=== PATIENT | female | born 1970 | race Caucasian/White ===

== ENCOUNTER 2016-08-07 20:52 | Observation (INO) | payer OTHER ==
[2016-08-07] MEDS ORDERED: ASPIRIN 81 MG CHEW PO STA (21:14)
[2016-08-07] MEDS ORDERED: NITROGLYCERIN OINT 1 INCH/GM PACKET TOPICAL STA (21:14)
--- NOTE | 2016-08-07 21:17 | ED ---
Chest Pain HPI - General Chief Complaint: Chest Pain Stated Complaint: chest pain Time Seen by Provider: 08/07/16 21:00 Source: patient, family Mode of arrival: ambulatory Limitations: no limitations - History of Present Illness Initial Comments: This 46-year-old white female presents with a complaint of some left-sided chest pain that radiates into her her left neck. It is been present intermittently for the last 3 days. It is associated with some shortness of breath and palpitations. She states that the palpitations feel like her heart is skipping a beat at times. She will have this at rest and sometimes with exertion. She does relate a history of similar incidents with previous workup. Her last stress test was well over 5 years ago. She's also had a Holter monitor. Her previous workups were negative. She denies any leg pain or swelling or history of DVT or PE. She denies any known pulmonary or cardiac disease. She does relate a history of liver cirrhosis, stage IV but otherwise denies any other medical conditions. She has been working out regularly for the past 2 months. - Related Data Home Medications Medication Instructions Recorded Confirmed Ursodiol [Ursodiol] 500 mg PO TID 06/17/15 08/07/16 Artificial Tears-Hypromellose 1 drops BOTH EYES DAILY PRN 08/07/16 08/07/16 [Artificial Tear Drops] Calcium Carbonate [Calcium] 600 mg PO DAILY 08/07/16 08/07/16 Cholecalciferol [Vitamin D3] 1,000 unit PO DAILY 08/07/16 08/07/16 Gluc/Link-MSM#1/C/Jair/Margarito/Bor 1 tab PO DAILY 08/07/16 08/07/16 [Glucosamine-Chondroitin Tablet] Vitamin B Complex 1 cap PO DAILY 08/07/16 08/07/16 Allergies Allergy/AdvReac Type Severity Reaction Status Date / Time fentanyl AdvReac Nausea & Verified 08/07/16 21:17 Vomiting Review of Systems ROS Statement: Those systems with pertinent positive or pertinent negative responses have been documented in the HPI. ROS Other: All systems not noted in ROS Statement are negative. Past Medical History Additional Past Medical History / Comment(s): liver disease stage 4 History of Any Multi-Drug Resistant Organisms: None Reported Past Surgical History: Section, Cholecystectomy Past Psychological History: No Psychological Hx Reported Smoking Status: Never smoker Past Alcohol Use History: None Reported Past Drug Use History: None Reported General Exam - General Exam Comments Initial Comments: GENERAL: The patient is well nourished and well hydrated. VITAL SIGNS: Heart rate, blood pressure, respiratory rate reviewed as recorded in nurse's notes. EYES: Pupils are round and reactive. Extraocular movements are intact. No conjunctival / lid redness or swelling. ENT: No external evidence of injury, swelling, or ecchymosis. Airway is patent. Throat is clear. NECK: Nontender. No swelling or evidence of injury. No subcutaneous emphysema. Trachea is midline. No thyroid mass. HEART: Regular rate and rhythm. Good peripheral pulses. LUNGS/CHEST: Breath sounds clear and equal bilaterally. No rales, rhonchi, or wheezes. No ecchymosis, subcutaneous emphysema, or tenderness. ABDOMEN: Abdomen soft without tenderness. No palpable masses or organomegaly. No peritoneal signs. No abdominal wall swelling or ecchymosis. EXTREMITIES: No extremity tenderness. Normal muscle tone and function. No thoracolumbar tenderness. NEUROLOGIC: Sensation is grossly intact. Cranial nerve exam reveals face is symmetrical, tongue is midline, speech is clear. SKIN: No abrasions or ecchymosis is noted. No induration or masses noted. PSYCHIATRIC: Alert and oriented. Appropriate behavior and judgment. 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 All diagnostics were reviewed. The EKG shows a normal sinus rhythm at a rate of 60. No acute ST-T wave changes are identified. The MS interval is 158, QRS duration is 76, and QTC intervals 404. The chest x-ray did not show any acute processes. The laboratory overall is fairly unremarkable. She received aspirin as well as Nitropaste. She is in no distress on recheck. It is felt as though she would benefit from admission to the hospital for further cardiac workup and to rule out acute coronary syndrome. Case will be discussed with medicine in the near future. Disposition Clinical Impression: Chest pain, Dyspnea, Unstable angina Disposition: ADMITTED IP TO THIS [facility] Condition: Fair Time of Disposition: 22:44 Decision Date: 08/07/16 Decision Time: 22:44
[2016-08-07 21:31] LABS: Basophils % (A) 1 %; CH 31.4; CHCM 32.8; Eosinophils # (A) 0.1 k/uL (0-0.7); Eosinophils % (A) 2 %; HCT 46.1 % (34.0-46.0); HDW 2.21; HGB 14.9 gm/dL (11.4-16.0); Luc # (Auto) 0.13; Luc % (Auto) 3; Lymphocytes # (A) 1.7 k/uL (1.0-4.8); Lymphocytes % (A) 37 %; MCH 31.2 pg (25.0-35.0); MCHC 32.4 g/dL (31.0-37.0); MCV 96.3 fL (80.0-100.0); Mean Platelet Volume 7.6; Monocytes # (A) 0.3 k/uL (0-1.0); Monocytes % (A) 6 %; Neutrophils # (A) 2.4 k/uL (1.3-7.7); Neutrophils % (A) 52 %; RBC 4.79 m/uL (3.80-5.40); WBC 4.5 k/uL (3.8-10.6); WBC (Perox) 4.72
[2016-08-07 21:35] LABS: ALT 45 U/L (9-52); AST 45 U/L (14-36); Alkaline Phosphatase 150 U/L (38-126); Anion Gap 8 mmol/L; Blood Urea Nitrogen 15 mg/dL (7-17); Calcium 10.4 mg/dL (8.4-10.2); Carbon Dioxide 29 mmol/L (22-30); Chloride 103 mmol/L (98-107); Glucose 92 mg/dL (74-99); Non-African American GFR(MDRD) >60 (>60 ml/min/1.73 sqM); Sodium 140 mmol/L (137-145); Total Bilirubin 0.7 mg/dL (0.2-1.3); Total Protein 8.3 g/dL (6.3-8.2)
[2016-08-07 21:43] LABS: INR 1.1 (<1.1); Partial Thromboplastin Time 23.4 sec (22.0-30.0); Prothrombin Time 10.7 sec (9.0-12.0)
[2016-08-07 21:46] LABS: Creatine Kinase 45 U/L (30-135)
[2016-08-07 21:59] LABS: Creatine Kinase MB 0.5 ng/mL (0.0-2.4); Troponin I <0.012 ng/mL (0.000-0.034)
--- NOTE | 2016-08-07 22:04 | XR ---
EXAMINATION TYPE: XR chest 2V DATE OF EXAM: 08/07/2016 9:25 PM COMPARISON: NONE HISTORY: Pain TECHNIQUE: Frontal and lateral views of the chest are obtained. FINDINGS: There is no focal air space opacity, pleural effusion, or pneumothorax seen. The cardiac silhouette size is within normal limits. The osseous structures are intact. IMPRESSION: No acute cardiopulmonary process.
[2016-08-07] MEDS ORDERED: HEPARIN SODIUM,PORCINE 5,000 UNIT/ML 1 ML VIAL IV ONE (22:45)
[2016-08-07] MEDS ORDERED: NITROGLYCERIN SL TABS 0.4 MG TAB SUBLINGUAL PRN (22:45)
[2016-08-07] MEDS ORDERED: HEPARIN SODIUM,PORCINE 5,000 UNIT/ML 1 ML VIAL IV PRN (22:45)
[2016-08-07] MEDS: HEPARIN SODIUM,PORCINE/D5W PMX 25,000 UNIT in DEXTROSE/WATER 1 500ML.BAG IV SCH (23:15)
[2016-08-07] MEDS ORDERED: URSODIOL 500 MG PO SCH (23:45)
[2016-08-08] MEDS: NITROGLYCERIN OINT 1 INCH/GM PACKET TOPICAL SCH ×4 (00:21→20:36)
[2016-08-08] MEDS ORDERED: URSODIOL 300 MG CAP PO ONE (01:00)
[2016-08-08 06:22] LABS: Creatine Kinase 33 U/L (30-135)
[2016-08-08 06:34] LABS: Cholesterol 145 mg/dL (<200); HDL Cholesterol 93 mg/dL (40-60); Triglycerides 68 mg/dL (<150)
[2016-08-08 06:36] LABS: Creatine Kinase MB 0.4 ng/mL (0.0-2.4); Troponin I <0.012 ng/mL (0.000-0.034)
[2016-08-08] MEDS ORDERED: ARTIFICIAL TEARS-HYPROMELLOSE DROPS 15 ML BTL BOTH EYES PRN (10:25)
[2016-08-08] MEDS ORDERED: NON-FORMULARY DRUG (Gluc/Chon-Msm#1/C/Mang/Bos/Bor [Glucosamine-Chondroitin Tablet] 1 TAB) PO SCH (10:30)
[2016-08-08] MEDS ORDERED: CHOLECALCIFEROL 1,000 UNIT TAB PO SCH (12:00)
[2016-08-08] MEDS ORDERED: B COMPLEX-VIT C-VIT E-ZINC 1 EACH TAB PO SCH (12:00)
[2016-08-08] MEDS ORDERED: HYDROmorphone 1 MG/ML 1 ML SYRINGE IVP STA (12:06)
--- NOTE | 2016-08-08 12:11 | ECHOF ---
Referral Reason:cp and sob MEASUREMENTS -------- HEIGHT: 172.7 cm WEIGHT: 83.9 kg BP: 111/72 IVSd: 1.2 cm (0.6 - 1.1) LVIDd: 4.4 cm (3.9 - 5.3) LVPWd: 1.1 cm (0.6 - 1.1) IVSs: 1.5 cm LVIDs: 3.0 cm LVPWs: 1.3 cm LAESV Index (A-L): 16.69 ml/m Ao Diam: 3.0 cm (2.0 - 3.7) AV Cusp: 1.7 cm (1.5 - 2.6) LA Diam: 2.6 cm (2.7 - 3.8) MV EXCURSION: 22.169 mm (> 18.000) MV EF SLOPE: 113 mm/s (70 - 150) EPSS: 0.9 cm MV E Kristian: 0.97 m/s MV DecT: 236 ms MV A Kristian: 0.70 m/s MV E/A Ratio: 1.38 RAP: 5.00 mmHg RVSP: 10.99 mmHg FINDINGS -------- Sinus rhythm. This was a technically adequate study. There is borderline concentric left ventricular hypertrophy. Overall left ventricular systolic function is normal with, an EF between 60 - 65 %. The right ventricle is normal in size. Normal LA size by volume 22+/-6 ml/m2. The right atrium is normal in size. Aortic valve is trileaflet and is mildly thickened. There is trace mitral regurgitation. Trace tricuspid regurgitation present. There is no evidence of pulmonary hypertension. The right ventricular systolic pressure, as measured by Doppler, is 10.99mmHg. The pulmonic valve was not well visualized. The aortic root size is normal. There is no pericardial effusion. CONCLUSIONS -------- 1. Sinus rhythm. 2. There is borderline concentric left ventricular hypertrophy. 3. Overall left ventricular systolic function is normal with, an EF between 60 - 65 %. 4. Aortic valve is trileaflet and is mildly thickened. 5. There is trace mitral regurgitation. 6. Trace tricuspid regurgitation present. 7. The right ventricular systolic pressure, as measured by Doppler, is 10.99mmHg. 8. The aortic root size is normal. 9. There is no pericardial effusion. CODING SUPPORT SPECIALIST: Meryl Weathers RDCS
[2016-08-08 19:40] VITALS: RESP 16
[2016-08-08] MEDS: ASPIRIN 325 MG TAB PO SCH (20:35)
[2016-08-08] MEDS ORDERED: URSODIOL 300 MG CAP PO STA (20:55)
--- NOTE | 2016-08-08 21:55 | PN ---
DATE OF SERVICE: 08/08/2016 CHIEF COMPLAINT: Chest pain. HISTORY OF PRESENT ILLNESS: This is the first admission for this 46-year-old A0 white female yousif. She has apparently a history of liver disease and has had it for years. It is not related to alcohol. She states that it is stage IV. She sees a physician in [place]. She is not a candidate for a liver transplant. She noticed some shortness of breath and palpitations and came to the emergency room. She really did not have discomfort. She had no fever, chills, cough, hemoptysis, sputum production, palpitations, orthopnea, PND, etc. She had no fever or chills. REVIEW OF SYSTEMS: Otherwise unremarkable. She has had no urinary complaints, diabetes, etc. Past medical history, family history, and personal and social histories reveal that she is on Ursodiol for her liver disease and other [id number] vitamins. ALLERGIES: FENTANYL. She has had 2 C-sections, cholecystectomy. She has a family history of heart disease on her father's side. She does not smoke. PHYSICAL EXAMINATION: Blood pressure is 139/74 with a pulse of 85 and respirations of 18. In general she appears to be well developed, well nourished, in no acute distress. Skin color is normal and skin is warm and dry. There is no jaundice. Lymph nodes are not enlarged. Head, ears, eyes, nose, mouth and throat were normal. There is no scleral icterus. Chest is clear to auscultation. Cardiac exam demonstrated normal sinus rhythm with no murmurs or extra sounds. ABDOMEN: Soft, nontender, without visceromegaly or masses. Bowel sounds are present. EXTREMITIES: Normal. Neurologically she is intact. IMPRESSION: 1. Chest pain. 2. Palpitations. 3. Shortness of breath. 4. Stage (IV) cirrhosis? PLAN: 1. Bed rest. 2. IV fluids. 3. Serial EKGs and enzymes. Obtain records from [place] to see exactly what her liver disease is.
--- NOTE | 2016-08-08 21:57 | PN ---
DATE OF SERVICE: 08/08/2016 CHIEF COMPLAINT: Chest pain. HISTORY OF PRESENT ILLNESS: This lady is stable this morning and comfortable. She has not had any further pain. Further enzymes are pending. PHYSICAL EXAM: CHEST: Clear. CARDIAC: Normal. ABDOMEN: Soft, nontender. IMPRESSION: 1. Chest pain, etiology unknown. 2. Cirrhosis? PLAN: 1. Continue to monitor cardiac enzymes. 2. Increase activity. 3. Try to obtain records regarding her liver disease.
[2016-08-08] MEDS: CALCIUM CARBONATE 500 MG CHEWABLE PO SCH (22:01)
[2016-08-09] MEDS: NITROGLYCERIN OINT 1 INCH/GM PACKET TOPICAL SCH ×2 (06:03→06:07)
[2016-08-09] MEDS ORDERED: URSODIOL 300 MG CAP PO SCH (07:30)
[2016-08-09 07:56] VITALS: BP 87/51; PULSE 56; TEMP 97.8
[2016-08-09] MEDS: HEPARIN SODIUM,PORCINE/D5W PMX 25,000 UNIT in DEXTROSE/WATER 1 500ML.BAG IV SCH (08:56)
[2016-08-09] MEDS: ASPIRIN 325 MG TAB PO SCH (08:57)
[2016-08-09] MEDS: CALCIUM CARBONATE 500 MG CHEWABLE PO SCH (08:57)
--- NOTE | 2016-08-09 09:12 | P.CRDCN ---
History of Present Illness Consult date: 08/09/16 Chief complaint: Heart racing and fluttering History of present illness: This is a pleasant 46-year-old female patient with a past medical history significant for liver cirrhosis presented to the hospital complaining of heart racing and fluttering episodes. The patient describes intermittent episodes of heart racing and fluttering associated with dizziness and lightheadedness without any syncope. Beside that she describes intermittent episodes of very mild atypical chest discomfort. She is not aware of any prior history of coronary artery disease or cardiac arrhythmia or congestive heart failure. The patient was ruled out for acute coronary event. The cardiac enzymes came in to be unremarkable. The EKG showed sinus rhythm without any significant changes. She underwent an echocardiogram which showed normal LV function without any significant valvular abnormalities. She has been running bradycardic while she is here but she exercised and the heart rate did not drop below 50 beats per minutes. I recommended that the patient can be discharged home. I will follow-up with the patient as an outpatient she is to have a stress test and event monitor. Past Medical History Additional Past Medical History / Comment(s): liver disease stage 4 History of Any Multi-Drug Resistant Organisms: None Reported Past Surgical History: Section, Cholecystectomy Past Anesthesia/Blood Transfusion Reactions: No Reported Reaction Past Psychological History: No Psychological Hx Reported Smoking Status: Never smoker Past Alcohol Use History: None Reported Past Drug Use History: None Reported - Past Family History Father Family Medical History: Cancer Additional Family Medical History / Comment(s): prostate cancer Mother Family Medical History: No Reported History Brother(s) Additional Family Medical History / Comment(s): fuchs disease Sister(s) Additional Family Medical History / Comment(s): un explained bleeding issue Son(s) Family Medical History: No Reported History Daughter(s) History Unknown: Yes Medications and Allergies Home Medications Medication Instructions Recorded Confirmed Type Ursodiol [Ursodiol] 500 mg PO TID 06/17/15 08/07/16 History Artificial Tears-Hypromellose 1 drops BOTH EYES DAILY PRN 08/07/16 08/07/16 History [Artificial Tear Drops] Calcium Carbonate [Calcium] 600 mg PO DAILY 08/07/16 08/07/16 History Cholecalciferol [Vitamin D3] 1,000 unit PO DAILY 08/07/16 08/07/16 History Gluc/Link-MSM#1/C/Jair/Margarito/Bor 1 tab PO DAILY 08/07/16 08/07/16 History [Glucosamine-Chondroitin Tablet] Vitamin B Complex 1 cap PO DAILY 08/07/16 08/07/16 History Allergies Allergy/AdvReac Type Severity Reaction Status Date / Time fentanyl AdvReac Nausea & Verified 08/07/16 23:39 Vomiting Physical Exam Vitals: Vital Signs Temp Pulse Resp BP Pulse Ox 08/09/16 07:56 97.8 F 56 L 16 87/51 99 08/09/16 04:00 97.9 F 53 L 16 102/68 99 08/09/16 00:00 98.2 F 55 L 16 102/61 97 08/08/16 20:00 16 08/08/16 19:39 98.7 F 62 16 109/66 97 08/08/16 16:00 97.9 F 62 14 101/66 95 08/08/16 12:00 98.1 F 62 16 98/69 97 Intake and Output 08/08/16 08/09/16 08/09/16 22:59 06:59 14:59 Intake Total 240 Balance 240 Intake: Oral 240 Other: Voiding Method Toilet Toilet # Voids 1 - Constitutional General appearance: no acute distress - Respiratory Respiratory: bilateral: CTA - Cardiovascular Rhythm: regular Heart sounds: normal: S1, S2 Results 08/07/16 21:00 08/07/16 21:00 Cardiac Enzymes 08/08/16 Range/Units 14:34 Troponin I <0.012 (0.000-0.034) ng/mL Current Medications Generic Name Dose Route Start Last Admin Trade Name Freq PRN Reason Stop Dose Admin Artificial Tears 1 drops 08/08/16 10:25 Artificial Tear Drops BOTH EYES DAILY PRN Dry Eye(s) Aspirin 325 mg 08/08/16 09:00 08/09/16 08:57 Aspirin PO 325 mg DAILY OCTAVIA Administration Calcium Carbonate/Glycine 500 mg 08/08/16 11:00 08/09/16 08:57 Tums PO 500 mg DAILY OCTAVIA Administration Cholecalciferol 1,000 unit 08/08/16 12:00 08/08/16 22:01 Vitamin D3 PO 1,000 unit DAILY@1200 OCTAVIA Administration Nitroglycerin 1 inch 08/08/16 01:00 08/09/16 06:07 Nitro-Bid Oint TOPICAL Not Given Q6HR [facility] Nitroglycerin 0.4 mg 08/07/16 22:45 Nitrostat SUBLINGUAL Q5M PRN Chest Pain Ursodiol 600 mg 08/09/16 07:30 08/09/16 08:57 Actigall PO 600 mg TID-W/MEALS OCTAVIA Administration Vitamin B Complex/Vit C/Vit E/Zinc 1 each 08/08/16 12:00 08/08/16 23:09 Z-Bec PO 1 each DAILY@1200 OCTAVIA Administration Intake and Output 08/08/16 08/09/16 08/09/16 22:59 06:59 14:59 Intake Total 240 Balance 240 Intake: Oral 240 Other: Voiding Method Toilet Toilet # Voids 1 Assessment and Plan Plan: Assessment Atypical chest discomfort Intermittent episodes of heart racing and fluttering The first cirrhosis Plan The patient was ruled out for acute coronary event She underwent an echo showed normal LV function She can be discharged home.
--- NOTE | 2016-08-09 09:53 | P.DS ---
Providers Date of admission: 08/07/16 22:45 Expected date of discharge: 08/09/16 Attending physician: Alen León Consults: 08/09/16 08:46 Consult Physician Routine Consulting Provider: Chris Gomes Consult Reason/Comments: chest pain Do you want consulting provider notified?: Yes Primary care physician: Stated None Hospital Course: 46-year-old female presented on the day of admission to the emergency room with a chief complaint of feeling that the heart was racing and fluttering associated with dizziness and lightheadedness with no evidence of a syncopal episode. Patient stated the episodes were intermittent. Additionally patient was expressing feeling atypical chest discomfort. Cardiac enzymes 3 sets were negative. The 12-lead EKG showed sinus with no acute changes. Patient underwent echocardiogram it showed normal LV function without any significant valvular abnormality.. Cardiology consultation was requested. Cardiology indicated that there was no further cardiac workup at this time the patient to be discharged and they would follow the patient up in an outpatient setting and have the patient wear an event monitor and do a stress test at that time. At the time of discharge on August 07 the AST was 45 ALT 45 alk phos 150. admission the patient did give a history of being told she had cirrhosis of the liver and stated that she sees a specialist in [place]. Did attempt to receive medical records from [place] were not able to obtain Impression discharge diagnosis Present on admission atypical chest pain negative cardiac enzymes 3 sets Echocardiogram left ventricular systolic function normal EF between 60 and 65% no valvular heart disease Mildly elevated AST and ALT History of liver disease states follows up with a physician in [place] History per patient report stage IV cirrhosis of the liver Present on admission heart palpitation twelve-lead EKG sinus rhythm The above dictated assessment and findings were discussed with Dr. León Impression and the plan of care have been dictated as directed. Ina Campbell nurse practitioner acting as a scribe for Dr. León Patient Condition at Discharge: Fair Plan - Discharge Summary Discharge Medication List Ursodiol 500 mg PO TID 06/17/15 [History] Artificial Tears-Hypromellose [Artificial Tear Drops] 1 drops BOTH EYES DAILY PRN 08/07/16 [History] Calcium Carbonate [Calcium] 600 mg PO DAILY 08/07/16 [History] Cholecalciferol [Vitamin D3] 1,000 unit PO DAILY 08/07/16 [History] Gluc/Link-MSM#1/C/Jair/Margarito/Bor [Glucosamine-Chondroitin Tablet] 1 tab PO DAILY 08/07/16 [History] Vitamin B Complex 1 cap PO DAILY 08/07/16 [History] Ursodiol [Actigall] 600 mg PO TID-W/MEALS cap 08/09/16 [Rx] Follow up Appointment(s)/Referral(s): None,Stated [Primary Care Provider] - 1-2 days Chris Gomes MD [STAFF PHYSICIAN] - 1 Week Alen León MD [STAFF PHYSICIAN] - 08/11/16 Discharge Disposition: HOME SELF-CARE
--- NOTE | 2016-08-09 16:19 | PN ---
DATE OF SERVICE: 08/09/2016 CHIEF COMPLAINT: Chest pain. HISTORY OF PRESENT ILLNESS: This lady is doing fairly well. She still has some discomfort. Studies have all been negative so far. We have not been able to obtain records from [place]. PHYSICAL EXAMINATION: Color is good. Chest is clear. Cardiac exam is normal. Abdomen is soft, nontender. IMPRESSION: 1. Chest pain, etiology unknown. 2. End-stage liver disease. PLAN: 1. Await studies from [place]. 2. She could probably go home otherwise, and this will be arranged by the nurse practitioner if she goes today.
--- NOTE | 2016-08-10 07:19 | DS ---
DATE OF ADMISSION: 08/07/2016 DATE OF DISCHARGE: 08/09/2016 CHIEF COMPLAINT: Chest pain. HISTORY OF PRESENT ILLNESS: This lady was admitted with chest pain but it sounded more likely it was GI. The records were sought from [place], but not received. Heart disease was ruled out and it was felt that she could be discharged on the third. She will follow up with her own physicians in [place]. FINAL DIAGNOSES: 1. Atypical chest pain. 2. Stage IV liver disease. OPERATIONS: None. CONSULTATIONS: None. She is improved.
== END 2016-08-09 11:22 | disposition home or self-care (01) ==
LOC: EC 20:52 → 3OBS 22:45
PROVIDERS: ADMIT Family Medicine; ATTEND Family Medicine
DX: R07.89 Other chest pain (principal); N18.6 End stage renal disease; K74.60 Unspecified cirrhosis of liver; R00.2 Palpitations; R06.02 Shortness of breath; R00.0 Tachycardia, unspecified; R42 Dizziness and giddiness; Z88.5 Allergy status to narcotic agent; Z82.49 Family history of ischemic heart disease and other diseases of the circulatory system; Z79.899 Other long term (current) drug therapy
CPT/HCPCS: 96375; 96374; 99285; 36415; 93005; 93306; 85379; 83880; 80061; 80053; 82550 ×2; 82553 ×2; 83735; 84484 ×2; 85025; 85610; 85730 ×2; 71020; G0378 ×3; J1644 ×2; J1170

== ENCOUNTER → 2017-12-13 | Outpatient (CLI) | payer BC ==
--- NOTE | 2017-12-14 14:16 | MM ---
Reason for exam: screening (asymptomatic). Last mammogram was performed 1 year and 11 months ago. History: Benign right mammotome panel of the right breast, July 01, 2013. Physical Findings: A clinical breast exam by your physician is recommended on an annual basis and results should be correlated with mammographic findings. MG 3D Screening Mammo W/Cad Bilateral CC and MLO view(s) were taken. Prior study comparison: January 21, 2016, bilateral MG 3d screening mammo w/cad. January 22, 2014, right breast MG diagnostic mammo RT w CAD. The breast tissue is heterogeneously dense. This may lower the sensitivity of mammography. Previous mammotome biopsy in the right breast. There is no discrete abnormality. ASSESSMENT: Benign, BI-RAD 2 RECOMMENDATION: Routine screening mammogram of both breasts in 1 year.
== END | disposition home or self-care (01) ==
LOC: RADMAMWWP 09:10
PROVIDERS: ATTEND Obstetrics & Gynecology
DX: Z12.31 Encounter for screening mammogram for malignant neoplasm of breast (principal)
CPT/HCPCS: 77063; 77067

== ENCOUNTER → 2019-04-10 | Outpatient (CLI) | payer BC ==
--- NOTE | 2019-04-14 09:29 | MM ---
Reason for exam: screening (asymptomatic). Last mammogram was performed 1 year and 4 months ago. History: Benign right mammotome panel of the right breast, July 01, 2013. Physical Findings: A clinical breast exam by your physician is recommended on an annual basis and results should be correlated with mammographic findings. MG 3D Screening Mammo W/Cad Bilateral CC and MLO view(s) were taken. Prior study comparison: December 13, 2017, bilateral MG 3d screening mammo w/cad. January 21, 2016, bilateral MG 3d screening mammo w/cad. The breast tissue is heterogeneously dense. This may lower the sensitivity of mammography. Previous mammotome biopsy in the right breast. Global asymmetry upper outer quadrant left breast is unchanged. No significant changes when compared with prior studies. ASSESSMENT: Benign, BI-RAD 2 RECOMMENDATION: Routine screening mammogram of both breasts in 1 year.
== END | disposition home or self-care (01) ==
LOC: RADMAMWWP 10:53
PROVIDERS: ATTEND Obstetrics & Gynecology
DX: Z12.31 Encounter for screening mammogram for malignant neoplasm of breast (principal)
CPT/HCPCS: 77063; 77067

== ENCOUNTER 2020-04-26 13:22 | Inpatient (IN) | payer BC ==
--- NOTE | 2020-04-26 13:59 | ED ---
General Adult HPI - General Chief complaint: Chest Pain Stated complaint: Chest pain Time Seen by Provider: 04/26/20 13:25 Source: patient, EMS, RN notes reviewed, old records reviewed Mode of arrival: EMS Limitations: no limitations - History of Present Illness Initial comments: This a 50-year-old female with a past medical history significant for SVT. Patient states she's had SVT in the past. But this morning when she was exercising went to 200 beats a minute. And it lasted for about an hour. Patient got to the emergency department she was still expressing some chest heaviness when they did a troponin that was normal and the second troponin was mildly elevated. Patient denies any shortness of breath earlier when the heart rate was racing she felt a little short of breath and lightheaded. - Related Data Home Medications Medication Instructions Recorded Confirmed ursodioL [Ursodiol] 500 mg PO TID 06/17/15 04/26/20 Calcium Carbonate [Calcium] 600 mg PO DAILY 08/07/16 04/26/20 Cholecalciferol [Vitamin D3 (25 1,000 unit PO DAILY 08/07/16 04/26/20 Mcg = 1000 Iu)] Vitamin B Complex 1 cap PO DAILY 08/07/16 04/26/20 Ascorbic Acid [Vitamin C] 1,000 mg PO DAILY 04/26/20 04/26/20 Allergies Allergy/AdvReac Type Severity Reaction Status Date / Time fentanyl AdvReac Nausea & Verified 04/26/20 13:52 Vomiting Review of Systems ROS Statement: Those systems with pertinent positive or pertinent negative responses have been documented in the HPI. ROS Other: All systems not noted in ROS Statement are negative. Past Medical History Additional Past Medical History / Comment(s): liver disease stage 4, SVT History of Any Multi-Drug Resistant Organisms: None Reported Past Surgical History: Section, Cholecystectomy Past Anesthesia/Blood Transfusion Reactions: No Reported Reaction Past Psychological History: No Psychological Hx Reported Smoking Status: Never smoker Past Alcohol Use History: None Reported Past Drug Use History: None Reported - Past Family History Father Family Medical History: Cancer Additional Family Medical History / Comment(s): prostate cancer Mother Family Medical History: No Reported History Brother(s) Additional Family Medical History / Comment(s): fuchs disease Sister(s) Additional Family Medical History / Comment(s): un explained bleeding issue Son(s) Family Medical History: No Reported History Daughter(s) History Unknown: Yes General Exam - General Exam Comments Initial Comments: GENERAL: Patient is well-developed and well-nourished. Patient is nontoxic and well- hydrated and is in mild distress. ENT: Neck is soft and supple. No significant lymphadenopathy is noted. Oropharynx is clear. Moist mucous membranes. Neck has full range of motion without eliciting any pain. EYES: The sclera were anicteric and conjunctiva were pink and moist. Extraocular movements were intact and pupils were equal round and reactive to light. Eyelids were unremarkable. PULMONARY: Unlabored respirations. Good breath sounds bilaterally. No audible rales rhonchi or wheezing was noted. CARDIOVASCULAR: There is a regular rate and rhythm without any murmurs gallops or rubs. ABDOMEN: Soft and nontender with normal bowel sounds. SKIN: Skin is clear with no lesions or rashes and otherwise unremarkable. NEUROLOGIC: Patient is alert and oriented x3. Cranial nerves II through XII are grossly intact. Motor and sensory are also intact. Normal speech, volume and content. Symmetrical smile. MUSCULOSKELETAL: Normal extremities with adequate strength and full range of motion. No lower extremity swelling or edema. No calf tenderness. LYMPHATICS: No significant lymphadenopathy is noted PSYCHIATRIC: Normal psychiatric evaluation. Limitations: no limitations Course Vital Signs 04/26/20 13:26 Temperature 98.2 F Pulse Rate 64 Respiratory 18 Rate Blood Pressure 116/77 O2 Sat by Pulse 99 Oximetry Medical Decision Making - Medical Decision Making EKG shows normal sinus rhythm at 60 bpm OR interval is 144 QRS is 74 Q-T intervals 398 QTC is 423. Patient's EKG shows no ST segment elevation or depression. Patient still states she has some chest pressure. I spoke with Dr. CABRERA agreed to admit the patient admitted the patient wrote admitting orders Disposition Clinical Impression: Chest pain, SVT (supraventricular tachycardia) Disposition: ADMITTED IP TO THIS HOSP Referrals: Simone Salazar MD [Primary Care Provider] - 1-2 days Time of Disposition: 14:09
[2020-04-26] MEDS ORDERED: NITROGLYCERIN SL TABS 0.4 MG TAB SUBLINGUAL PRN (14:10)
[2020-04-26] MEDS ORDERED: IBUPROFEN 400 MG TAB PO PRN (17:30)
[2020-04-26] MEDS: NITROGLYCERIN OINT 1 INCH/GM PACKET TOPICAL SCH ×3 (17:35→22:30)
--- NOTE | 2020-04-26 18:25 | P.HPIM ---
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 She is a PCP of Dr. Wilson Patient presents because he hospital for supraventricular tachycardia that lasted for an hour and then back to normal sinus rhythm, also she had elevated troponin so she was sent to [facility] Patient states she has been doing workouts by then by the end of her session she felt pressure in her chest radiating to the neck, ear and left armpit associated with some dyspnea so she went home and measured her blood pressure and pulse monitor and found her heart rate is 200 and at times she cannot get it. She waited for 30-45 minutes and then with no resolution of her symptoms she decided to come to the hospital. in The hospital her heart rate was 96. Then patient was transferred to this hospital Patient states that she's been having supraventricular tachycardia for the last 2-3 years and she follows up with Dr. Gomes she gets these SVT attacks once a month and sometimes once a week however this time is more severe than usual so she decided to come to the hospital She denies smoking, alcohol or drugs On admission her Vitas looks stable with heart rate of 64 EKG showed normal sinus rhythm at 681. Troponin is elevated at 0.17 Chest pressure with elevated troponin related to her arrhythmia documents from [facility] showing influenza is negative /, troponin is slightly elevated at 0.067, INR 0.9, low WBC 3.7, hemoglobin 14.2, platelets slightly low at 112, sodium 141, potassium 3.7, bicarb 30, creatinine 0.9, glucose 109. AST 39, ALT 28 and bilirubin 0.6. Chest x-ray here shows no acute process. She got aspirin 81 mg, Toradol and Zofran Review of Systems CONSTITUTIONAL: No fever, no malaise, no fatigue. HEENT: No recent visual problems or hearing problems. Denied any sore throat. CARDIOVASCULAR: No orthopnea, PND, no palpitations, no syncope. PULMONARY: No shortness of breath, no cough, no hemoptysis. GASTROINTESTINAL: No diarrhea, no nausea, no vomiting, no abdominal pain. Normoactive bowel sounds. NEUROLOGICAL: No headaches, no weakness, no numbness. HEMATOLOGICAL: Denies any bleeding or petechiae. GENITOURINARY: Denies any burning micturition, frequency, or urgency. MUSCULOSKELETAL/RHEUMATOLOGICAL: Denies any joint pain, swelling, or any muscle pain. ENDOCRINE: Denies any polyuria or polydipsia. Past Medical History Additional Past Medical History / Comment(s): liver disease stage 4, SVT History of Any Multi-Drug Resistant Organisms: None Reported Past Surgical History: Section, Cholecystectomy Past Anesthesia/Blood Transfusion Reactions: No Reported Reaction Past Psychological History: No Psychological Hx Reported Smoking Status: Never smoker Past Alcohol Use History: None Reported Past Drug Use History: None Reported - Past Family History Father Family Medical History: Cancer Additional Family Medical History / Comment(s): prostate cancer Mother Family Medical History: No Reported History Brother(s) Additional Family Medical History / Comment(s): fuchs disease Sister(s) Additional Family Medical History / Comment(s): un explained bleeding issue Son(s) Family Medical History: No Reported History Daughter(s) History Unknown: Yes Medications and Allergies Home Medications Medication Instructions Recorded Confirmed Type ursodioL [Ursodiol] 500 mg PO TID 06/17/15 04/26/20 History Calcium Carbonate [Calcium] 600 mg PO DAILY 08/07/16 04/26/20 History Cholecalciferol [Vitamin D3 (25 1,000 unit PO DAILY 08/07/16 04/26/20 History Mcg = 1000 Iu)] Vitamin B Complex 1 cap PO DAILY 08/07/16 04/26/20 History Ascorbic Acid [Vitamin C] 1,000 mg PO DAILY 04/26/20 04/26/20 History Allergies Allergy/AdvReac Type Severity Reaction Status Date / Time fentanyl AdvReac Nausea & Verified 04/26/20 13:52 Vomiting Physical Exam Vitals: Vital Signs Temp Pulse Resp BP Pulse Ox 04/26/20 13:26 98.2 F 64 18 116/77 99 Intake and Output 04/25/20 04/26/20 04/26/20 22:59 06:59 14:59 Other: Weight 79.379 kg GENERAL: The patient is alert and oriented x3, not in any acute distress. Well developed, well nourished. HEENT: Pupils are round and equally reacting to light. EOMI. No scleral icterus. No conjunctival pallor. Normocephalic, atraumatic. No pharyngeal erythema. No thyromegaly. CARDIOVASCULAR: S1 and S2 present. No murmurs, rubs, or gallops. PULMONARY: Chest is clear to auscultation, no wheezing or crackles. ABDOMEN: Soft, nontender, nondistended, normoactive bowel sounds. No palpable organomegaly. MUSCULOSKELETAL: No joint swelling or deformity. EXTREMITIES: No cyanosis, clubbing, or pedal edema. NEUROLOGICAL: Gross neurological examination did not reveal any focal deficits. SKIN: No rashes. No petechiae
[2020-04-26] MEDS: FAMOTIDINE 20 MG/2 ML VIAL IV SCH (19:58)
[2020-04-26] MEDS: HEPARIN SODIUM,PORCINE 5,000 UNIT/ML 1 ML VIAL SQ SCH (19:58)
[2020-04-26] MEDS: MORPHINE SULFATE ER 15 MG TABLET PO PRN (21:25)
[2020-04-27] MEDS: NITROGLYCERIN OINT 1 INCH/GM PACKET TOPICAL SCH (05:17)
[2020-04-27] MEDS: MORPHINE SULFATE ER 15 MG TABLET PO PRN (08:00)
[2020-04-27] MEDS: HEPARIN SODIUM,PORCINE 5,000 UNIT/ML 1 ML VIAL SQ SCH ×2 (08:02→19:49)
[2020-04-27] MEDS: FAMOTIDINE 20 MG/2 ML VIAL IV SCH ×2 (08:02→19:50)
[2020-04-27 08:33] LABS: Basophils % (A) 1 %; Eosinophils # (A) 0.1 k/uL (0-0.7); Eosinophils % (A) 2 %; HCT 40.3 % (34.0-46.0); HGB 12.7 gm/dL (11.4-16.0); Lymphocytes # (A) 1.1 k/uL (1.0-4.8); Lymphocytes % (A) 36 %; MCH 30.8 pg (25.0-35.0); MCHC 31.5 g/dL (31.0-37.0); Monocytes # (A) 0.2 k/uL (0-1.0); Monocytes % (A) 6 %; Neutrophils # (A) 1.6 k/uL (1.3-7.7); Neutrophils % (A) 52 %; RBC 4.11 m/uL (3.80-5.40); RDW 12.9 % (11.5-15.5)
[2020-04-27 08:51] LABS: African American GFR (CKD) >90 (>60 ml/min/1.73 sqM); Anion Gap 2 mmol/L; Blood Urea Nitrogen 18 mg/dL (7-17); Calcium 9.9 mg/dL (8.4-10.2); Carbon Dioxide 30 mmol/L (22-30); Chloride 108 mmol/L (98-107); Cholesterol 176 mg/dL (<200); Glucose 90 mg/dL (74-99); HDL Cholesterol 109 mg/dL (40-60); LDL Cholesterol,Calculated 58 mg/dL (0-99); Non-African American GFR(CKD) 88 (>60 ml/min/1.73 sqM); Potassium 4.3 mmol/L (3.5-5.1); Sodium 140 mmol/L (137-145); Triglycerides 46 mg/dL (<150)
[2020-04-27] MEDS ORDERED: ASPIRIN 325 MG TAB PO SCH (09:00)
[2020-04-27 09:05] LABS: Platelet Count 98 k/uL (150-450)
[2020-04-27] MEDS ORDERED: NITROGLYCERIN SL TABS 0.4 MG TAB SUBLINGUAL PRN (10:23)
[2020-04-27] MEDS ORDERED: ALPRAZolam 0.25 MG TAB PO PRN (10:23)
[2020-04-27] MEDS ORDERED: SODIUM CHLORIDE 0.9% 1,000 ML in EMPTY BAG 1 BAG IV ONE (10:23)
[2020-04-27] MEDS ORDERED: ATORVASTATIN 80 MG TAB PO STA (10:23)
[2020-04-27] MEDS ORDERED: ALPRAZolam 0.5 MG TAB PO PRN (10:23)
[2020-04-27] MEDS ORDERED: ASPIRIN 325 MG TAB PO STA (10:23)
--- NOTE | 2020-04-27 10:44 | ECHOF ---
Referral Reason:elevated troponins, chest pain MEASUREMENTS -------- HEIGHT: 172.7 cm WEIGHT: 78.5 kg BP: RVIDd: 2.3 cm (< 3.3) IVSd: 0.9 cm (0.6 - 1.1) LVIDd: 4.3 cm (3.9 - 5.3) LVPWd: 0.8 cm (0.6 - 1.1) IVSs: 1.6 cm LVIDs: 1.7 cm LVPWs: 1.3 cm LAESV Index (A-L): 12.15 ml/m Ao Diam: 2.6 cm (2.0 - 3.7) AV Cusp: 1.8 cm (1.5 - 2.6) LA Diam: 2.5 cm (2.7 - 3.8) MV EXCURSION: 14.273 mm (> 18.000) MV EF SLOPE: 130 mm/s (70 - 150) EPSS: 0.6 cm MV E Kristian: 0.90 m/s MV DecT: 201 ms MV A Kristian: 0.83 m/s MV E/A Ratio: 1.08 RAP: 5.00 mmHg RVSP: 15.17 mmHg FINDINGS -------- Sinus rhythm. This was a technically good study. The left ventricular size is normal. Left ventricular wall thickness is normal. Overall left vent ricular systolic function is normal with, an EF between 55 - 60 %. The diastolic filling pattern is normal for the age of the patient 9.42. The right ventricle is normal in size. Normal LA size by volume 22+/-6 ml/m2. The right atrial size is normal. Interatrial and interventricular septum intact. The aortic valve is trileaflet, and appears structurally normal. No aortic stenosis or regurgitation. The mitral valve is normal. Mild mitral regurgitation is present. The tricuspid valve appears structurally normal. Trace tricuspid regurgitation present. Right tiera tricular systolic pressure is normal at < 35 mmHg. There is no pulmonic regurgitation present. The aortic root size is normal. Normal inferior vena cava with normal inspiratory collapse consistent with estimated right atrial pre ssure of 5 mmHg. There is no pericardial effusion. CONCLUSIONS -------- 1. Left ventricular wall thickness is normal. 2. Overall left ventricular systolic function is normal with, an EF between 55 - 60 %. 3. Normal LA size by volume 22+/-6 ml/m2. 4. The aortic valve is trileaflet, and appears structurally normal. No aortic stenosis or regurgitati on. 5. Mild mitral regurgitation is present. 6. Trace tricuspid regurgitation present. 7. There is no pericardial effusion. PLATER HELPER: Nya Wilder RDCS
--- NOTE | 2020-04-27 11:02 | P.PN ---
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 She is a PCP of Dr. Wilson Patient presents because he hospital for supraventricular tachycardia that lasted for an hour and then back to normal sinus rhythm, also she had elevated troponin so she was sent to [facility] Patient states she has been doing workouts by then by the end of her session she felt pressure in her chest radiating to the neck, ear and left armpit associated with some dyspnea so she went home and measured her blood pressure and pulse monitor and found her heart rate is 200 and at times she cannot get it. She waited for 30-45 minutes and then with no resolution of her symptoms she decided to come to the hospital. in The hospital her heart rate was 96. Then patient was transferred to this hospital Patient states that she's been having supraventricular tachycardia for the last 2-3 years and she follows up with Dr. Gomes she gets these SVT attacks once a month and sometimes once a week however this time is more severe than usual so she decided to come to the hospital She denies smoking, alcohol or drugs On admission her Vitas looks stable with heart rate of 64 EKG showed normal sinus rhythm at 681. Troponin is elevated at 0.17 Chest pressure with elevated troponin related to her arrhythmia documents from [facility] showing influenza is negative , troponin is slightly elevated at 0.067, INR 0.9, low WBC 3.7, hemoglobin 14.2, platelets slightly low at 112, sodium 141, potassium 3.7, bicarb 30, creatinine 0.9, glucose 109. AST 39, ALT 28 and bilirubin 0.6. Chest x-ray here shows no acute process. She got aspirin 81 mg, Toradol and Zofran 04/27/2020 Patient looks little anxious today. She still have a little chest pressure but no significant pain. No palpitation or significant prolonged episodes of arrhythmia or tachycardia. Labs from today showing WBC of 3.0, platelet 98, BMP is unremarkable, troponin is trending down to 0.06. Echocardiogram showing ejection fraction of 55-60% with no other significant abnormality Cardiology team are planned for stress test today Review of Systems CONSTITUTIONAL: No fever, no malaise, no fatigue. HEENT: No recent visual problems or hearing problems. Denied any sore throat. CARDIOVASCULAR: No orthopnea, PND, no palpitations, no syncope. PULMONARY: No shortness of breath, no cough, no hemoptysis. GASTROINTESTINAL: No diarrhea, no nausea, no vomiting, no abdominal pain. Normoactive bowel sounds. NEUROLOGICAL: No headaches, no weakness, no numbness. Active Medications Generic Name Dose Route Start Last Admin Trade Name Freq PRN Reason Stop Dose Admin Alprazolam 0.25 mg 04/27/20 10:23 Alprazolam 0.25 Mg Tab PO Q6HR PRN Mild Anxiety Alprazolam 0.5 mg 04/27/20 10:23 Alprazolam 0.5 Mg Tab PO Q6HR PRN Moderate Anxiety Famotidine 20 mg 04/26/20 21:00 04/27/20 08:02 Famotidine 20 Mg/2 Ml Vial IV 20 mg Q12HR OCTAVIA Administration Heparin Sodium (Porcine) 5,000 unit 04/26/20 21:00 04/27/20 08:02 Heparin Sodium,Porcine 5,000 Unit/Ml 1 Ml Vial SQ 5,000 unit Q12HR OCTAVIA Administration Sodium Chloride 1,000 ml/ IV 1,000 mls @ 78.5 mls/hr 04/27/20 10:23 Solution IV 04/27/20 23:07 .[id number] ONE 1 ML/KG/HR Heparin Sodium (Porcine) 10, 1,001 mls @ 999 mls/hr 04/28/20 07:00 000 unit/ Sodium Chloride IRRIGATION 04/28/20 23:00 ONCE PRN INTRA-OP Heparin Sodium (Porcine) 2,500 250.5 mls @ 250 mls/hr 04/28/20 07:00 unit/ Sodium Chloride IRRIGATION 04/28/20 23:00 ONCE PRN INTRA-OP Morphine Sulfate 15 mg 04/26/20 20:33 04/27/20 08:00 Morphine Sulfate Er 15 Mg Tablet PO 15 mg Q8HR PRN Administration Mild to Moderate Pain Nitroglycerin 0.4 mg 04/26/20 14:10 Nitroglycerin Sl Tabs 0.4 Mg Tab SUBLINGUAL Q5M PRN Chest Pain Nitroglycerin 0.4 mg 04/27/20 10:23 Nitroglycerin Sl Tabs 0.4 Mg Tab SUBLINGUAL Q5M PRN Chest Pain Objective - Vital Signs Vital signs: Vital Signs Temp 98.1 F 04/27/20 08:08 Pulse 57 L 04/27/20 08:08 Resp 14 04/27/20 08:08 BP 106/59 04/27/20 08:08 Pulse Ox 99 04/27/20 08:08 Intake & Output 04/26/20 04/27/20 04/27/20 18:59 06:59 18:59 Intake Total 200 Balance 200 Weight 79.379 kg 78.5 kg Intake: Oral 200 Other: Voiding Method Toilet # Voids 0 1 - Exam GENERAL: The patient is alert and oriented x3, not in any acute distress. Well developed, well nourished. HEENT: Pupils are round and equally reacting to light. EOMI. No scleral icterus. No conjunctival pallor. Normocephalic, atraumatic. No pharyngeal erythema. No thyromegaly. CARDIOVASCULAR: S1 and S2 present. No murmurs, rubs, or gallops. PULMONARY: Chest is clear to auscultation, no wheezing or crackles. ABDOMEN: Soft, nontender, nondistended, normoactive bowel sounds. No palpable organomegaly. MUSCULOSKELETAL: No joint swelling or deformity. EXTREMITIES: No cyanosis, clubbing, or pedal edema. NEUROLOGICAL: Gross neurological examination did not reveal any focal deficits. SKIN: No rashes. no petechiae. - Labs CBC & Chem 7: 04/27/20 08:11 04/27/20 08:03 Labs: Abnormal Lab Results - Last 24 Hours (Table) 04/26/20 04/27/20 04/27/20 Range/Units 17:02 08:03 08:11 WBC 3.0 L (3.8-10.6) k/uL Plt Count 98 L (150-450) k/uL Chloride 108 H (98-107) mmol/L BUN 18 H (7-17) mg/dL Troponin I 0.170 H* (0.000-0.034) ng/mL HDL Cholesterol 109 H (40-60) mg/dL 04/27/20 Range/Units 08:11 WBC (3.8-10.6) k/uL Plt Count (150-450) k/uL Chloride (98-107) mmol/L BUN (7-17) mg/dL Troponin I 0.062 H* (0.000-0.034) ng/mL HDL Cholesterol (40-60) mg/dL Assessment and Plan Assessment: Supraventricular tachycardia Chest pressure with elevated troponin could be related to her SVT versus non- STEMI History of primary biliary cirrhosis Plan: this is a pleasant 50 years old female who presents with SVT and chest pain. Patient is going for cardiac cath today. Continue with aspirin. Cardiology team R following the case Labs and medication were reviewed.. Continue same treatment. Continue with symptomatic treatment. Resume home medication. Monitor lytes and vitals. DVT and GI prophylaxis. Further recommendationsas per clinical course of the p atient DVT prophylaxis: Subcutaneous heparin GI Prophylaxis: Pepcid Prognosis is guarded
[2020-04-27] MEDS ORDERED: MIDAZOLAM 2 MG/2 ML VIAL IV ONE (12:34)
[2020-04-27] MEDS ORDERED: LIDOCAINE 1% INJ 10MG/ML (20 ML MDV) SQ ONE (12:34)
[2020-04-27] MEDS: VERAPAMIL SYRINGE (5 MG/10 ML) INTRAARTER ONE ×2 (12:34→12:42)
[2020-04-27] MEDS ORDERED: IOPAMIDOL-370 125ML BTL INJ ONE (12:40)
[2020-04-27] MEDS ORDERED: IV FLUID CONTINUATION 1,000 ML IV ONE (12:41)
[2020-04-27] MEDS ORDERED: RX INFO: IV CONTRAST WAS GIVEN 1 EACH MISC MISCELLANE PRN (12:46)
[2020-04-27] MEDS ORDERED: SODIUM CHLORIDE 0.9% 1,000 ML IV SCH (13:00)
--- NOTE | 2020-04-27 13:27 | P.CRDCN ---
History of Present Illness Consult date: 04/27/20 History of present illness: CHIEF COMPLAINT: Chest pain, SVT HISTORY OF PRESENT ILLNESS: This is a 50-year-old female with a past medical history significant for SVT. Patient follows in the office with Eliseo. We have been asked to see the patient in consultation for chest pain and SVT. Patient initially presented to [facility]. Troponin level was drawn there and resulted 0.67. The patient was then transferred to [facility] for further evaluation. Patient examined at the bedside. She states that she was doing a c [employer] workout yesterday and after the workout she felt like something in her chest popped. She states that her her heart was racing and was near 200 bpm. She has an apparent history of SVT and is prescribed verapamil for when she has these episodes. However the patient states she did not take a dose of the verapamil. She reports feeling dizzy, nauseated, and diaphoretic yesterday. She reports that she developed a pressure on the left side of her chest, left armpit area, and both sides of her neck. This morning she reports a slight pressure on both sides of her chest near her armpits that she describes as muscle spasms. Patient denies any previous stress test or cardiac catheterization. She states her dad has a history of angina but did not require any stenting. DIAGNOSTICS: EKG reveals sinus mechanism with no signs of acute ischemia Chest xray negative for acute process Laboratory data: WBC 3.0. Hemoglobin 12.7. Platelet count 98. Sodium 140. Potassium 4.3. BUN 18. Creatinine 0.78. Troponin 0.067. 0.170. 0.062. Current home cardiac medications include verapamil 80 mg when necessary Echocardiogram completed revealed ejection fraction 55-60%, mild mitral regurgitation, and trace tricuspid regurgitation. REVIEW OF SYSTEMS: At the time of my exam: CONSTITUTIONAL: Denies fever or chills. HEENT: Denies blurred vision, vision changes, or eye pain. Denies hemoptysis CARDIOVASCULAR: Denies chest pain, orthopnea, PND or palpitations RESPIRATORY: No shortness of breath. GASTROINTESTINAL: Denies abdominal pain. Denies nausea or vomiting. HEMATOLOGIC: Denies bleeding disorders. GENITOURINARY: Denies any blood in urine. SKIN: Denies pruitis. Denies rash. PHYSICAL EXAM: VITAL SIGNS: Reviewed. GENERAL: Well-developed in no acute distress. HEENT: Head is normocephalic. Pupils are equal, round. Sclerae anicteric. Mucous membranes of the mouth are moist. Neck supple. No JVD or thyromegaly LUNGS: Respirations even and unlabored. Lungs essentially clear to auscultation bilaterally. HEART: Regular rate and rhythm. S1 and S2 heard. ABDOMEN: Soft. Nondistended. Nontender. EXTREMITIES: Normal range of motion. No clubbing or cyanosis. Peripheral pulses intact. No lower extremity edema NEUROLOGIC: Awake and alert. Oriented x 3. ASSESSMENT: Chest pain Possible SVT Abnormal troponins, may be secondary to SVT History of SVT PLAN: Continue telemetry monitoring Dr. Nassar reviewed options with patient regarding stress test versus cardiac cath. Patient opted for cardiac catheterization. Case discussed with Dr. Gomes. Patient to undergo cardiac catheterization today with Dr. Gomes. Nurse practitioner note has been reviewed by physician. Signing provider agrees with the documented findings, assessment, and plan of care. Past Medical History Past Medical History: Supraventricular Tachycardia (SVT) Additional Past Medical History / Comment(s): liver disease stage 4, SVT History of Any Multi-Drug Resistant Organisms: None Reported Past Surgical History: Section, Cholecystectomy Past Anesthesia/Blood Transfusion Reactions: No Reported Reaction Past Psychological History: No Psychological Hx Reported Smoking Status: Never smoker Past Alcohol Use History: None Reported Past Drug Use History: None Reported - Past Family History Father Family Medical History: Cancer Additional Family Medical History / Comment(s): prostate cancer Mother Family Medical History: No Reported History Brother(s) Additional Family Medical History / Comment(s): fuchs disease Sister(s) Additional Family Medical History / Comment(s): un explained bleeding issue Son(s) Family Medical History: No Reported History Daughter(s) History Unknown: Yes Family Medical History: No Reported History Medications and Allergies Home Medications Medication Instructions Recorded Confirmed Type ursodioL [Ursodiol] 500 mg PO TID 06/17/15 04/26/20 History Calcium Carbonate [Calcium] 600 mg PO DAILY 08/07/16 04/26/20 History Cholecalciferol [Vitamin D3 (25 1,000 unit PO DAILY 08/07/16 04/26/20 History Mcg = 1000 Iu)] Vitamin B Complex 1 cap PO DAILY 08/07/16 04/26/20 History Ascorbic Acid [Vitamin C] 1,000 mg PO DAILY 04/26/20 04/26/20 History Allergies Allergy/AdvReac Type Severity Reaction Status Date / Time fentanyl AdvReac Nausea & Verified 04/26/20 13:52 Vomiting Physical Exam Vitals: Vital Signs Temp Pulse Pulse Resp BP BP Pulse Ox 04/27/20 11:18 98.2 F 65 14 116/75 97 04/27/20 08:08 98.1 F 57 L 14 106/59 99 04/27/20 05:19 97.8 F 55 L 16 92/60 97 04/26/20 22:45 65 16 84/52 99 04/26/20 19:51 97.9 F 74 16 113/51 98 04/26/20 15:22 98.1 F 64 16 107/74 97 04/26/20 14:49 97.8 F 65 18 105/68 99 04/26/20 14:21 60 18 100/68 99 04/26/20 14:00 70 15 116/77 99 04/26/20 13:26 98.2 F 64 18 116/77 99 Intake and Output 04/26/20 04/27/20 04/27/20 22:59 06:59 14:59 Intake Total 200 95 Balance 200 95 Intake: IV 50 Oral 200 45 Other: Voiding Method Toilet # Voids 0 1 1 Weight 79.379 kg 78.5 kg Results 04/27/20 08:11 04/27/20 08:03 Cardiac Enzymes 04/26/20 04/27/20 04/27/20 Range/Units 17:02 08:11 10:54 Troponin I 0.170 H* 0.062 H* 0.056 H* (0.000-0.034) ng/mL Lipids 04/27/20 Range/Units 08:03 Triglycerides 46 (<150) mg/dL Cholesterol 176 (<200) mg/dL HDL Cholesterol 109 H (40-60) mg/dL CBC 04/27/20 Range/Units 08:11 WBC 3.0 L (3.8-10.6) k/uL RBC 4.11 (3.80-5.40) m/uL Hgb 12.7 (11.4-16.0) gm/dL Hct 40.3 (34.0-46.0) % Plt Count 98 L (150-450) k/uL Comprehensive Metabolic Panel 04/27/20 Range/Units 08:03 Sodium 140 (137-145) mmol/L Potassium 4.3 (3.5-5.1) mmol/L Chloride 108 H (98-107) mmol/L Carbon Dioxide 30 (22-30) mmol/L BUN 18 H (7-17) mg/dL Creatinine 0.78 (0.52-1.04) mg/dL Glucose 90 (74-99) mg/dL Calcium 9.9 (8.4-10.2) mg/dL Current Medications Generic Name Dose Route Start Last Admin Trade Name Freq PRN Reason Stop Dose Admin Alprazolam 0.25 mg 04/27/20 10:23 Alprazolam 0.25 Mg Tab PO Q6HR PRN Mild Anxiety Alprazolam 0.5 mg 04/27/20 10:23 04/27/20 11:11 Alprazolam 0.5 Mg Tab PO 0.5 mg Q6HR PRN Administration Moderate Anxiety Famotidine 20 mg 04/26/20 21:00 04/27/20 08:02 Famotidine 20 Mg/2 Ml Vial IV 20 mg Q12HR OCTAVIA Administration Heparin Sodium (Porcine) 5,000 unit 04/26/20 21:00 04/27/20 08:02 Heparin Sodium,Porcine 5,000 Unit/Ml 1 Ml Vial SQ 5,000 unit Q12HR OCTAVIA Administration Sodium Chloride 1,000 ml/ IV 1,000 mls @ 78.5 mls/hr 04/27/20 10:23 04/27/20 11:16 Solution IV 04/27/20 23:07 78.5 mls/hr .[id number] ONE Administration 1 ML/KG/HR Heparin Sodium (Porcine) 10, 1,001 mls @ 999 mls/hr 04/28/20 07:00 000 unit/ Sodium Chloride IRRIGATION 04/28/20 23:00 ONCE PRN INTRA-OP Heparin Sodium (Porcine) 2,500 250.5 mls @ 250 mls/hr 04/28/20 07:00 unit/ Sodium Chloride IRRIGATION 04/28/20 23:00 ONCE PRN INTRA-OP Sodium Chloride 1,000 mls @ 75 mls/hr 04/27/20 13:00 Saline 0.9% IV 04/27/20 18:01 .[id number] OCTAVIA Miscellaneous Information 1 each 04/27/20 12:46 Rx Info: Iv Contrast Was Given 1 Each Misc MISCELLANE 04/29/20 12:46 DAILY PRN Per Protocol Morphine Sulfate 15 mg 04/26/20 20:33 04/27/20 08:00 Morphine Sulfate Er 15 Mg Tablet PO 15 mg Q8HR PRN Administration Mild to Moderate Pain Nitroglycerin 0.4 mg 04/27/20 10:23 Nitroglycerin Sl Tabs 0.4 Mg Tab SUBLINGUAL Q5M PRN Chest Pain Intake and Output 04/26/20 04/27/20 04/27/20 22:59 06:59 14:59 Intake Total 200 95 Balance 200 95 Intake: IV 50 Oral 200 45 Other: Voiding Method Toilet # Voids 0 1 1 Weight 79.379 kg 78.5 kg 04/27/20 08:11 04/27/20 08:03
--- NOTE | 2020-04-27 15:47 | CC ---
CARDIAC CATHETERIZATION REPORT DATE OF SERVICE: April 27, 2020. PERFORMING PHYSICIAN: Chris Gomes MD. PROCEDURE PERFORMED: 1. Selective right and left coronary angiogram. 2. Left heart catheterization. INDICATION: Acute [id number] myocardial infarction. COMPLICATION: None. LEVEL OF SEDATION: Moderate with sedation length of 11 minutes. PROCEDURE DESCRIPTION: After obtaining an informed consent, the patient was brought to cardiac laborer tin can. The right radial artery was cannulated using micropuncture technique, the micropuncture wire passed easily then I placed a 6-Bahraini sheath at the right radial artery. I gave the patient 2 mg of verapamil IA and no anticoagulation was given because the patient did have thrombocytopenia. Selective right and left coronary angiogram performed with JR4 and JL3.5 catheters. Left heart catheterization was performed using a pigtail catheter. The procedure was completed without any complication. SELECTIVE CORONARY ANGIOGRAM: 1. The right coronary artery is a moderate caliber vessel. It is a dominant vessel and appeared to be angiographically normal. 2. The left main is angiographically normal. It bifurcates into left circumflex and left anterior descending artery. 3. Left circumflex is a large caliber vessel. It is a dominant vessel. The left circumflex is angiographically normal. It gives rise into multiple obtuse marginal branches or appeared to be angiographically normal. 4. The LAD is angiographically normal. Proximally, it gives rise into a large diagonal branch which seems to be angiographically normal. HEMODYNAMICS: The LVEDP was about 10 to 12 mmHg without significant gradient across the aortic valve. CONCLUSION: 1. Normal coronary angiogram. 2. Normal LVEDP. POSTPROCEDURE MANAGEMENT: 1. Medical treatment. 2. Follow up with the patient. MMODL / IJN: [id number] /
[2020-04-27 19:43] VITALS: RESP 16
[2020-04-27] MEDS: URSODIOL 500 MG PO SCH (19:49)
[2020-04-28] MEDS: MORPHINE SULFATE ER 15 MG TABLET PO PRN (02:24)
[2020-04-28] MEDS ORDERED: HEPARIN SODIUM,PORCINE 2,500 UNIT in SODIUM CHLORIDE 0.9% 250 ML IRRIGATION PRN (07:00)
[2020-04-28] MEDS ORDERED: HEPARIN SODIUM,PORCINE 10,000 UNIT in SODIUM CHLORIDE 0.9% 1,000 ML IRRIGATION PRN (07:00)
[2020-04-28] MEDS: HEPARIN SODIUM,PORCINE 5,000 UNIT/ML 1 ML VIAL SQ SCH ×2 (08:52→08:56)
[2020-04-28] MEDS: FAMOTIDINE 20 MG/2 ML VIAL IV SCH (08:52)
[2020-04-28] MEDS ORDERED: HYDROcodone/APAP 7.5-325MG 1 EACH TAB PO ONE (09:39)
[2020-04-28] MEDS ORDERED: LIDOCAINE 5% PATCH TOPICAL SCH (09:45)
[2020-04-28] MEDS: URSODIOL 500 MG PO SCH (10:31)
[2020-04-28 10:42] VITALS: TEMP 98.5
[2020-04-28 12:08] VITALS: BP 102/67; PULSE 61
--- NOTE | 2020-04-28 13:49 | P.PN ---
Subjective Progress Note Date: 04/28/20 CHIEF COMPLAINT: Chest pain, SVT HISTORY OF PRESENT ILLNESS: 04/27/2020 This is a 50-year-old female with a past medical history significant for SVT. Patient follows in the office with Eliseo. We have been asked to see the patient in consultation for chest pain and SVT. Patient initially presented to [facility]. Troponin level was drawn there and resulted 0.67. The patient was then transferred to [facility] for further evaluation. Patient examined at the bedside. She states that she was doing a cardio workout yesterday and after the workout she felt like something in her chest popped. She states that her her heart was racing and was near 200 bpm. She has an apparent history of SVT and is prescribed verapamil for when she has these episodes. However the patient states she did not take a dose of the verapamil. She reports feeling dizzy, na useated, and diaphoretic yesterday. She reports that she developed a pressure on the left side of her chest, left armpit area, and both sides of her neck. This morning she reports a slight pressure on both sides of her chest near her armpits that she describes as muscle spasms. Patient denies any previous stress test or cardiac catheterization. She states her dad has a history of angina but did not require any stenting. 04/28/2020 Patient underwent cardiac cath yesterday revealing normal coronary arteries. Patient denies chest pain or pressure. Denies shortness of breath. Denies palpitations. Vital signs are stable. PHYSICAL EXAM: VITAL SIGNS: Reviewed. GENERAL: Well-developed in no acute distress. HEENT: Head is normocephalic. Pupils are equal, round. Sclerae anicteric. Mucous membranes of the mouth are moist. Neck supple. No JVD or thyromegaly LUNGS: Respirations even and unlabored. Lungs essentially clear to auscultation bilaterally. HEART: Regular rate and rhythm. S1 and S2 heard. ABDOMEN: Soft. Nondistended. Nontender. EXTREMITIES: Normal range of motion. No clubbing or cyanosis. Peripheral pulses intact. No lower extremity edema NEUROLOGIC: Awake and alert. Oriented x 3. ASSESSMENT: Chest pain Possible SVT Abnormal troponins, may be secondary to SVT History of SVT PLAN: Begin metoprolol 25 mg twice a day Patient is stable for discharge home today from a cardiac perspective. Patient to follow up outpatient with Dr. Gomes. Nurse practitioner note has been reviewed by physician. Signing provider agrees with the documented findings, assessment, and plan of care. Objective - Vital Signs Vital signs: Vital Signs Temp 98.5 F 04/28/20 08:00 Pulse 61 04/28/20 12:00 Resp 16 04/28/20 12:00 BP 102/67 04/28/20 12:00 Pulse Ox 98 04/28/20 08:00 Intake & Output 04/27/20 04/28/20 04/28/20 18:59 06:59 18:59 Intake Total 815 236 Balance 815 236 Weight 82.3 kg Intake: IV 50 Oral 765 236 Other: Voiding Method Toilet # Voids 2 1 1 - Labs CBC & Chem 7: 04/27/20 08:11 04/27/20 08:03 Labs: Abnormal Lab Results - Last 24 Hours (Table) 04/27/20 Range/Units 14:46 Troponin I 0.064 H* (0.000-0.034) ng/mL
--- NOTE | 2020-04-29 00:05 | P.DS ---
Providers Date of admission: 04/26/20 14:10 Attending physician: Sukhi Rehman MD Consults: 04/26/20 14:10 Consult Physician Urgent Consulting Provider: [facility] Consult Reason/Comments: Chest pain, SVT Do you want consulting provider notified?: Yes Primary care physician: Simone Salazar [facility] Course: Diagnoses: Supraventricular tachycardia, resolved Chest pressure with elevated troponin secondary to SVT , non-STEMI has ruled out, patient had normal coronary arteries and cardiac cath History of primary biliary cirrhosis Hospital course: This is a pleasant 50 years old female with past medical history of primary biliary cirrhosis on medication and she follows up at [facility] and history of SVT. She is a PCP of Dr. Nichols Patient presents because he hospital for supraventricular tachycardia that lasted for an hour and then back to normal sinus rhythm, see H&P for more details. On admission she had elevated troponin and because of concern for coronary artery disease or non-STEMI she underwent cardiac cath by grants specialist which showed normal coronary arteries. Patient's symptoms improved and she is back to her baseline and patient was cleared for discharge by grants specialist Patient had low back pain, musculoskeletal. No weakness and numbness and gait is normal, improved with Narco 1 dose lidocaine patch. Patient feels she can go home today Problems and management plan were discussed with the patient and he verbalized understanding and acceptance Patient was found stable and can be discharged home however he needs follow-up as an outpatient. Patient was instructed to follow up with PCP Dr. Martin Nichols within one week and patient agrees. Also patient was instructed to follow up with her grants specialist Dr. Martinez in one week and she agrees to make her own appointment. Gen: patient is a AAOx3, no distress CVS: S1-S2, RRR, no murmur Lungs: B/L CTA, no wheezing Abdomen: soft, no distention, no tenderness, positive bowel sounds Extremity: no leg edema or induration Time spent more than 35 minutes Plan - Discharge Summary New Discharge Prescriptions: New Lidocaine 5% Patch [Lidoderm 5% Patch] 1 patch TOPICAL DAILY #3 patch Metoprolol Tartrate 25 mg PO BID #60 tab Continue ursodioL [Ursodiol] 500 mg PO TID Vitamin B Complex 1 cap PO DAILY Cholecalciferol [Vitamin D3 (25 Mcg = 1000 Iu)] 1,000 unit PO DAILY Calcium Carbonate [Calcium] 600 mg PO DAILY Ascorbic Acid [Vitamin C] 1,000 mg PO DAILY Discharge Medication List ursodioL [Ursodiol] 500 mg PO TID 06/17/15 [History] Calcium Carbonate [Calcium] 600 mg PO DAILY 08/07/16 [History] Cholecalciferol [Vitamin D3 (25 Mcg = 1000 Iu)] 1,000 unit PO DAILY 08/07/16 [History] Vitamin B Complex 1 cap PO DAILY 08/07/16 [History] Ascorbic Acid [Vitamin C] 1,000 mg PO DAILY 04/26/20 [History] Lidocaine 5% Patch [Lidoderm 5% Patch] 1 patch TOPICAL DAILY #3 patch 04/28/20 [Rx] Metoprolol Tartrate 25 mg PO BID #60 tab 04/28/20 [Rx] Follow up Appointment(s)/Referral(s): Chris Gomes MD [STAFF PHYSICIAN] - 05/04/20 3:45 pm Simone Salazar MD [Primary Care Provider] - 04/30/20 12:00 pm Patient Instructions/Handouts: After Radial Heart Catheterization (GEN) Activity/Diet/Wound Care/Special Instructions: Heart healthy diet Activity is restricted till you see your doctor Discharge Disposition: HOME SELF-CARE
== END 2020-04-28 12:39 | disposition home or self-care (01) | DRG 287 ==
LOC: EC 13:22 → 3SCARD 14:10
PROVIDERS: ADMIT Internal Medicine; ATTEND Internal Medicine
PROC: B2111ZZ Fluoroscopy of Multiple Coronary Arteries using Low Osmolar Contrast (ICD-10-PCS; 2020-04-27)
PROC: 4A023N7 Measurement of Cardiac Sampling and Pressure, Left Heart, Percutaneous Approach (ICD-10-PCS; principal; 2020-04-27 12:20)
DX: I47.1 Supraventricular tachycardia (principal); D69.6 Thrombocytopenia, unspecified; D72.819 Decreased white blood cell count, unspecified; K74.3 Primary biliary cirrhosis; Z90.49 Acquired absence of other specified parts of digestive tract; Z80.42 Family history of malignant neoplasm of prostate; Z84.89 Family history of other specified conditions; Z79.899 Other long term (current) drug therapy; Z88.5 Allergy status to narcotic agent
CPT/HCPCS: 80048; 80061; 84484; 85025; 93005; 93306; 93458; 99285

== ENCOUNTER → 2020-06-18 | Outpatient (CLI) | payer BC ==
[2020-06-18 12:10] LABS: HGB 13.6 gm/dL (11.4-16.0); MCH 31.7 pg (25.0-35.0); MCHC 32.5 g/dL (31.0-37.0); MCV 97.6 fL (80.0-100.0); Mean Platelet Volume 7.9; Platelet Count 125 k/uL (150-450); Prothrombin Time 10.9 sec (9.0-12.0); RDW 12.9 % (11.5-15.5); WBC 3.7 k/uL (3.8-10.6)
[2020-06-18 12:20] LABS: African American GFR (CKD) >90 (>60 ml/min/1.73 sqM); Anion Gap 4 mmol/L; Blood Urea Nitrogen 14 mg/dL (7-17); Carbon Dioxide 32 mmol/L (22-30); Chloride 104 mmol/L (98-107); Non-African American GFR(CKD) 88 (>60 ml/min/1.73 sqM); Potassium 4.3 mmol/L (3.5-5.1); Sodium 140 mmol/L (137-145)
== END | disposition home or self-care (01) ==
LOC: LABPAT 11:28
PROVIDERS: ATTEND Internal Medicine Clinical Cardiac Electrophysiology
DX: Z01.812 Encounter for preprocedural laboratory examination (principal); I47.1 Supraventricular tachycardia
CPT/HCPCS: 80051; 82565; 84520; 85027; 85610

== ENCOUNTER → 2020-06-18 | Outpatient (CLI) | payer BC ==
--- NOTE | 2020-06-21 11:36 | MM ---
Reason for exam: screening (asymptomatic). Last mammogram was performed 1 year and 2 months ago. History: Patient is postmenopausal. Benign right mammotome panel of the right breast, July 01, 2013. Physical Findings: A clinical breast exam by your physician is recommended on an annual basis and results should be correlated with mammographic findings. MG 3D Screening Mammo W/Cad Bilateral CC and MLO view(s) were taken. XCCL view(s) were taken of the left breast. Prior study comparison: April 10, 2019, bilateral MG 3d screening mammo w/cad. December 13, 2017, bilateral MG 3d screening mammo w/cad. The breast tissue is heterogeneously dense. This may lower the sensitivity of mammography. Previous mammotome biopsy in the right upper outer quadrant which chronic nodularity. Global asymmetry left upper outer quadrant. No significant changes when compared with prior studies. ASSESSMENT: Benign, BI-RAD 2 RECOMMENDATION: Routine screening mammogram of both breasts in 1 year.
== END | disposition home or self-care (01) ==
LOC: RADMAMWWP 11:07
PROVIDERS: ATTEND Obstetrics & Gynecology
DX: Z12.31 Encounter for screening mammogram for malignant neoplasm of breast (principal)
CPT/HCPCS: 77063; 77067

== ENCOUNTER 2020-06-24 10:05 | Day surgery (SDC) | payer BC ==
[2020-06-22 10:31] VITALS: BMI 28.1
[~2020-06-24 10:05] MED LIST: SODIUM CHLORIDE 0.9% 1,000 ML IV SCH
[2020-06-24] MEDS ORDERED: LIDOCAINE 1% INJ 10MG/ML (20 ML MDV) ONE ×2 (13:30→14:11)
[2020-06-24] MEDS ORDERED: HYDROmorphone (PF) 1 MG/ML ONE (13:34)
[2020-06-24] MEDS ORDERED: ISOPROTERENOL 250 MCG/1.25 ML SYR IV ONE (13:34)
[2020-06-24] MEDS ORDERED: MIDAZOLAM 2 MG/2 ML VIAL ONE (13:34)
[2020-06-24] MEDS ORDERED: KETAMINE 10 MG/ML 20 ML VIAL ONE (13:34)
[2020-06-24] MEDS ORDERED: PROPOFOL 10 MG/ML 20 ML VIAL IV ONE (13:34)
[2020-06-24] MEDS ORDERED: LIDOCAINE 1% INJ 10MG/ML (20 ML MDV) SQ ONE (14:02)
[2020-06-24] MEDS ORDERED: HYDROcodone/APAP 5-325MG 1 EACH TAB PO PRN (15:49)
[2020-06-24] MEDS ORDERED: ACETAMINOPHEN TAB 325 MG TAB PO PRN (15:49)
[2020-06-24] MEDS ORDERED: HEPARIN SODIUM (1,000 UNIT/ML) 1,000 UNIT in SODIUM CHLORIDE 0.9% 1,000 ML IRRIGATION ONE (16:14)
[2020-06-24] MEDS ORDERED: ACETAMINOPHEN IV (For NPO) 1,000 MG in EMPTY BAG 1 BAG IVPB ONE (16:15)
--- NOTE | 2020-06-24 16:22 | P.PRLE ---
RE: Catrachita Tristan Dear Dr. Martin Domínguez underwent a diagnostic EP study. 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 Martinez as before Thank you for entrusting me with the care of the patient Warm regards Sincerely Alvin Brooks
--- NOTE | 2020-06-24 16:32 | P.EPPROC ---
- EP Procedure Note Electrophysiology Procedure Note: Diagnosis Recurrent palpitations, symptomatic Procedures performed Diagnostic EP study with attempted arrhythmia induction CS pacing and recording Programmed stimulation following Isuprel 3-D mapping RF ablation for SVT, AV hao reentrant tachycardia Details Patient was brought to the EP lab in a fasting state. Written informed consent was obtained prior to the procedure. The right lobe groins were prepped and draped as a protocol and we'll sheaths were placed in the right and left femoral veins. Diagnostic catheter placed in the right atrium, His bundle area right ventricle and coronary sinus Baseline measurements are normal Sinus cycle length 790 ms, PA interval 135 ms, QRS 93 ms and QT interval 371 ms AH 112 ms, HV 46 ms Sinus recovery times at 600, 504 100 ms were 1383, 1237 and 894 ms. Corresponding corrected sinus node recovery times abnormal VA Wenckebach block 3:30 milliseconds. Retrograde conduction midline and decremental AV node Wenckebach block 320 ms No evidence for antegrade slow pathway conduction, no delta waves noted Atrial extra stimulation was performed. Ventricular system ablation was performed. Gene sinus extra stimulation was performed. No SVT induced Isuprel was started SVT was easily inducible with straight pacing from the high right atrium Tachycardia cycle length 230 ms Short septal times of less than 60 ms Ventricular pacing resulted in a VAAV response with a long PPI consistent with AV hao reentry Long sheaths placed with an irrigated tip ablation catheter 3-D endocrine mapping performed His cloud coronary sinus tricuspid annulus tagged RF ablation applied Successful site just outside the roof of the coronary sinus os, junctional rhythm noted with RF ablation Thereafter tachycardia could not be reinduced despite atrial stimulation both on and off Isuprel No other arrhythmias induced Result Successful mapping and ablation for AV hao reentry Successful site just outside the roof of the coronary sinus os
[2020-06-24] MEDS ORDERED: ONDANSETRON 4 MG/2 ML VIAL IVP PRN (21:07)
[2020-06-25 07:49] VITALS: RESP 16
--- NOTE | 2020-06-25 08:34 | DS ---
DISCHARGE SUMMARY Catrachita Tristan is a 50-year-old female who has recurrent palpitations. She underwent a diagnostic EP study which revealed typical AV hao reentrant tachycardia. She underwent successful ablation for this. The successful site was just outside the roof of the coronary sinus. She is doing well. She has minimal tenderness in the groin. No swelling. No hematoma. She has no chest discomfort. No dizziness. No lightheadedness. She has been ambulating around. Blood pressure is normal, 105/71 mmHg. Metoprolol has been discontinued. Heart sounds are normal. No murmurs. No gallop. No rub. Lungs are clear on auscultation. No lower extremity edema. No JVD. IMPRESSION: 1. Typical AV hao reentrant tachycardia. 2. Status post successful ablation. 3. The tachycardia was rendered noninducible. PLAN: Discontinue metoprolol, ambulate in the hallways and discharge home today and follow up with Dr. Gomes. MMODL / IJN: [id number] /
[2020-06-25 11:05] VITALS: BP 106/70; PULSE 65; TEMP 98.3
== END 2020-06-25 11:38 | disposition home or self-care (01) ==
LOC: CATHEP 10:05 → 3SCARD 16:15 → CATHEP 06-25 11:38
PROVIDERS: ATTEND Internal Medicine Clinical Cardiac Electrophysiology
DX: I47.1 Supraventricular tachycardia (principal); R16.1 Splenomegaly, not elsewhere classified; K76.6 Portal hypertension; K74.3 Primary biliary cirrhosis; Z79.899 Other long term (current) drug therapy; Z88.4 Allergy status to anesthetic agent
CPT/HCPCS: 93623; 93613; 93653; C1894; C1769 ×2; C1730; C1893; C1732; J2250; J2001; J1644; J1170; J2704

== ENCOUNTER → 2020-07-23 | Outpatient (CLI) | payer BC ==
--- NOTE | 2020-07-26 10:11 | USB ---
Reason for exam: clinical finding. History: Patient is postmenopausal. Benign right mammotome panel of the right breast, July 01, 2013. Indicated problem(s): pain in the left breast. Physical Findings: Nurse did not find any significant physical abnormalities on exam. US Breast BILAT Right complete breast ultrasound includes all four quadrants, the retroareolar region and axilla. Finding demonstrates no cystic or solid lesion seen. Left complete breast ultrasound includes all four quadrants, the retroareolar region and axilla. Finding demonstrates no cystic or solid lesion seen. Dense band of tissue at the 1-2 o'clock site of concern in the left breast. These results were verbally communicated with the patient and result sheet given to the patient on 07/23/20. ASSESSMENT: Negative, BI-RAD 1 RECOMMENDATION: Return to routine screening mammogram schedule for both breasts. Manage on a clinical basis. If a focal palpable area develops, the patient can be rescanned.
== END | disposition home or self-care (01) ==
LOC: RADUSWWP 08:58
PROVIDERS: ATTEND Obstetrics & Gynecology
DX: R92.2 Inconclusive mammogram (principal); Z78.0 Asymptomatic menopausal state

== ENCOUNTER → 2022-07-14 | Outpatient (CLI) | payer BC ==
--- NOTE | 2022-07-17 16:28 | MM ---
Reason for Exam: Screening (asymptomatic). Last screening mammogram was performed 12 month(s) ago. Patient History: Menarche at age 10. First Full-Term at age 20. Postmenopausal. 07/01/2013, Benign Core Biopsy on the right side. Risk Values: Lu 5 year model risk: 1.2%. NCI Lifetime model risk: 8.8%. Prior Study Comparison: 04/10/2019 Bilateral Screening Mammogram, [facility]. 06/18/2020 Bilateral Screening Mammogram, [facility]. 07/13/2021 Bilateral Screening Mammogram, [facility]. Tissue Density: The breast tissue is heterogeneously dense. This may lower the sensitivity of mammography. Findings: Analyzed By CAD. Pattern is symmetrical and stable. Stable calcifications are within the right breast. A core markers within the right breast. No suspicious groups of microcalcifications, spiculated or lobular masses, architectural distortion or other secondary signs of malignancy are mammographically apparent. Overall Assessment: Benign, BI-RAD 2 Management: Screening Mammogram of both breasts in 1 year. A negative mammogram report should not preclude additional follow up of suspicious palpable abnormalities. Patient should continue monthly self breast exam. A clinical breast exam by your physician is recommended on an annual basis and results should be correlated with mammographic findings. Electronically signed and approved by: Tony Martinez D.O. Radiologis
== END | disposition home or self-care (01) ==
LOC: RADMAMWWP 10:40
PROVIDERS: ATTEND Obstetrics & Gynecology
DX: Z12.31 Encounter for screening mammogram for malignant neoplasm of breast (principal); Z78.0 Asymptomatic menopausal state
CPT/HCPCS: 77063; 77067

== ENCOUNTER → 2024-10-13 | Outpatient (CLI) | payer BC ==
--- NOTE | 2024-10-13 10:24 | MM ---
Reason for Exam: Screening (asymptomatic). Last mammogram was performed 2 year(s) and 3 month(s) ago. Patient History: Menarche at age 10. First Full-Term at age 20. Postmenopausal. 07/01/2013, Benign Core Biopsy on the right side. Risk Values: Lu 5 year model risk: 1.3%. NCI Lifetime model risk: 8.5%. Prior Study Comparison: 06/18/2020 Bilateral Screening Mammogram, [facility]. 07/13/2021 Bilateral Screening Mammogram, [facility]. 07/14/2022 Bilateral MG 3D screening mammo w/cad, [facility]. Tissue Density: There are scattered areas of fibroglandular density. Findings: Analyzed By CAD. There is a biopsy clip in the right breast redemonstrated. There is no suspicious group of microcalcifications or new suspicious mass in either breast. Overall Assessment: Benign, BI-RAD 2 Management: Screening Mammogram of both breasts in 1 year. . Patient should continue monthly self-breast exams. A clinical breast exam by your physician is recommended on an annual basis. This exam should not preclude additional follow-up of suspicious palpable abnormalities. Note on Lu scores and lifetime risk: 1. A Lu score greater than 3% is considered moderate risk. If this is the case, consider specialist referral to assess eligibility for a risk reducing agent. 2. If overall lifetime risk for the development of breast cancer is 20% or higher, the patient may qualify for future screening with alternating mammogram and breast MRI. [facility], , 10/13/2024 10:21 AM. Electronically signed and approved by: Naseem Carroll M.D.
== END | disposition home or self-care (01) ==
LOC: RADMAMWWP 09:25
PROVIDERS: ATTEND Family Medicine
DX: Z12.31 Encounter for screening mammogram for malignant neoplasm of breast (principal); Z00.00 Encounter for general adult medical examination without abnormal findings; R92.323 Mammographic fibroglandular density, bilateral breasts; Z78.0 Asymptomatic menopausal state
CPT/HCPCS: 77063; 77067